=== PATIENT | female | born 1940 ===

== ENCOUNTER 2024-07-16 16:53 | Inpatient (IN) | payer OTHER ==
[2024-07-16 21:53] VITALS: BMI 20.2
[2024-07-16] MEDS: APIXABAN 5 MG TABLET PO ONE (22:35)
[2024-07-16] MEDS: GABAPENTIN 100 MG CAP PO SCH (22:35)
[2024-07-16] MEDS: ALPRAZOLAM 0.5 MG TABLET PO SCH (22:35)
[2024-07-16] MEDS: NITROFURAN MACRO 100 MG CAP PO ONE (22:35)
[2024-07-16 23:51] LABS: Specific Gravity 1.007 (1.005-1.030); Sqamous Epithelial None Seen /HPF (None Seen); Urine Bacteria 20-50 /HPF (<20); Urine Bilirubin NEGATIVE (Negative); Urine Blood Negative (Negative); Urine Clarity Turbid (Clear); Urine Color Colorless (Yellow); Urine Culture Reflex Order REFLEXED; Urine Glucose NEGATIVE (Negative); Urine Ketones NEGATIVE (Negative); Urine Micro Reflex YN NO BILL MICROSCOPIC; Urine Mucus Slight /HPF (None Seen); Urine Nitrite NEGATIVE (Negative); Urine Protein NEGATIVE (Negative); Urine RBC <5 /HPF (None Seen); Urine Urobilinogen Normal (Normal); Urine WBC 20-50 /HPF (<5); Urine WBC Clump Rare /HPF (None Seen)
[2024-07-17] MEDS ORDERED: ALBUTEROL INHALER 200 PUFF/6.7 GM IH PRN (02:02)
[2024-07-17] MEDS ORDERED: LOPERAMIDE HCL 2 MG CAPSULE PO PRN (02:02)
[2024-07-17] MEDS ORDERED: TRAMADOL HCL 50 MG TAB PO PRN (02:02)
[2024-07-17] MEDS ORDERED: ACETAMINOPHEN 325 MG TABLET PO PRN (02:02)
[2024-07-17] MEDS ORDERED: DOCUSATE NA/SENNA CONC 1 TAB PO PRN (02:08)
[2024-07-17 06:20] LABS: Absolute Basophils 0.1 K/uL (0-0.5); Absolute Eosinophils 0.2 K/uL (0-0.5); Absolute Lymphocytes (CBC) 1.9 K/uL (0.7-4.9); Absolute Monocytes 0.9 K/uL (0.1-1.3); Absolute Neutrophil 2.6 K/uL (1.8-8.0); Eosinophils % 3.7 % (0-4.4); Hematocrit 30.2 % (36.0-45.0); Hemoglobin 9.7 g/dL (12.0-15.0); Lymphocytes % 34.5 % (15.3-44.8); MCH 30.6 pg (27.0-35.0); MCHC 32.2 g/dL (32.0-36.0); MCV 94.9 fL (80-100); MPV 10.1 fL (7.6-11.3); Monocytes % 15.2 % (3.3-12.3); Neutrophils % 45.6 % (41.7-73.7); Nucleated Red Blood Cells % 0.2 % (0-0); Platelets 133 thou/uL (152-406); RBC Red Blood Cell Count 3.19 M/uL (3.86-4.86); Red Cell Distribution Width 15.9 % (12.1-15.2)
[2024-07-17 06:54] LABS: Albumin 2.1 g/dL (3.4-5.0); Anion Gap 5.9 mEq/L (5.0-15.0); Prealbumin 11.5 mg/dL (20-40)
[2024-07-17 06:55] LABS: Magnesium 1.7 mg/dL (1.6-2.4); Potassium 3.9 mEq/L (3.5-5.1)
[2024-07-17] MEDS: FLU (Fluarix Triv) TS24-25(6MOS UP)/PF 45 MCG/0.5 ML Syringe IM ONE (07:15)
[2024-07-17] MEDS: carvediloL 12.5 MG TAB PO SCH (07:29)
[2024-07-17] MEDS: LEVOTHYROXINE SOD 0.075 MG TAB PO SCH (07:29)
[2024-07-17] MEDS: FERROUS SULFATE 325 MG TAB PO SCH (07:29)
[2024-07-17] MEDS: VITAMIN D 5,000 UNIT CAP PO SCH (07:30)
[2024-07-17] MEDS: CRANBERRY FRUIT EXTRACT 425 MG CAPSULE PO SCH (07:30)
[2024-07-17] MEDS: ESCITALOPRAM 20 MG TAB PO SCH (07:30)
[2024-07-17] MEDS: methocarbamoL 750 MG TAB PO SCH (07:30)
[2024-07-17] MEDS: APIXABAN 2.5 MG TABLET PO SCH (10:28)
[2024-07-17] MEDS: NITROFURAN MACRO 100 MG CAP PO SCH (15:50)
--- NOTE | 2024-07-17 18:57 | RAD REPORT ---
EXAM: XR Abdomen 1 View (KUB) HISTORY: [facility] MAIN patient in contact isolation for esbl confirm peg placement COMPARISON: None FINDINGS: Single view of the abdomen shows a nonspecific, nonobstructive bowel gas pattern. No suspi cious calcifications are seen. The bones are unremarkable. Numerous surgical clips in the central and lower abdomen. Coiling material left upper quadrant probably relates to prior splenic artery/aneu rysm coiling. IVC filter in place. IMPRESSION: No acute findings. Incidental findings as above.
[2024-07-17] MEDS: GABAPENTIN 300 MG CAP PO SCH (21:03)
--- NOTE | 2024-07-18 00:06 | HP ---
Date of Admission: 07/16/2024 Time Of Service: 1:10 p.m. Chief Complaint: "I fell and broke my pelvis." History Of Present Illness: Ms. Kohler is an 83-year-old patient with history of posthemorrhagic ane stanislav, anxiety, arthritis, atrial fibrillation, bladder cancer, stroke, DVT, GERD, hypertension, dyslip idemia, hypothyroidism, peripheral neuropathy, pulmonary embolism, thyroid disease, who is living bet ween her multiple children who were often not present throughout the day and she has had multiple fal ls. She suffered a fall on the 06 of July into her bathtub and developed significant pain in th e pelvic region. She was unable to move. She was brought to [facility], where workup was suspici ous for cystitis and CT scan of the pelvis revealed an acute minimally displaced fracture of the righ t superior and inferior pubic rami. She had minimally displaced fracture of the right sacral ala. S he had multiple abnormal labs and she was admitted for medical management in addition to pain managem ent. She received IV antibiotics for acute cystitis, carvedilol for heart rate control, Eliquis for DVT prophylaxis, and statin for hypothyroidism along with antihypertensive medications. She was also diagnosed with metabolic syndrome except for diabetes. Her hypothyroidism was addressed with Synthr oid and she had antiplatelet therapy along with statin therapy for history of stroke. She did receiv e beta-kristen and IV Lovenox for pulmonary embolus, IV B12 and iron for thrombocytopenia. She is pu t on contact isolation due to multidrug-resistant organisms. She was evaluated by the Physical Thera py Service and found to be functioning well below her baseline. She required minimum assistance for bed mobilization, unable to stand secondary to pain. She was therefore referred for inpatient rehabi litation to receive intensive therapy to help her return to her prior level of functioning and reduce risk of rehospitalization. She of course has multiple comorbid conditions including management of u rinary tract infection, IV antibiotics will be managed. She has been transitioned to Macrobid for 4 weeks. She did have hemoglobin down to 10.4, hematocrit 32.7. She is receiving gabapentin for neuro pathic pain. As noted, recurrent history of falls with pain that is significant. She is medically c leared for aggressive therapy along with medical management and has now been put in the rehabilitatio n unit to help her return to prior level of functioning and reduce risk of rehospitalization. Past Medical History: As noted. Allergies: ALENDRONATE SODIUM, CELECOXIB, AND PENICILLINS. Current Medications: Tylenol 650 mg every 6 hours as needed, [place] 5/325 every 6 hours as needed, al buterol nebulizer 2 puffs every 6 hours as needed, Xanax 0.5 mg at bedtime, Eliquis 2.5 mg twice jovi y, Coreg 12.5 mg twice daily, vitamin D 5000 units daily, duloxetine 20 mg daily, Lexapro 20 mg daily , ferrous sulfate 325 mg daily, gabapentin 300 mg twice daily, Synthroid 0.15 mg daily, Imodium 2 mg every 4 hours as needed for diarrhea, Robaxin 750 mg twice daily, Macrobid 100 mg twice daily for 4 w eeks, Senokot-S 2 at bedtime, tramadol 50 mg every 6 hours as needed. Laboratory Studies: White blood cell count 5.6, hemoglobin 9.7, platelets are 133. Sodium 142, pota ssium 3.4, chloride 113, carbon dioxide 27, BUN 15, creatinine 0.77, glucose 84, calcium 8.5, magnesi um 1.7, albumin 2.1, prealbumin 11.5. Urinalysis is turbid clarity, 20 to 50 white blood cells, 20 t o 50 bacteria, and cultures are pending. Family History: Noncontributory. Review of Systems: She does report some moderate pain while lying in bed and becomes moderate to severe pain when trying to bear weight and transfer. Otherwise, she denies any fevers, chills, nausea, vomiting. She has m ild myalgias, arthralgias. No rash, headache. No active psychiatric issues. She did say she is nadiya y happy to have a PureWick at night especially as it is very difficult for her to do a transfer from bed to sit to stand to use a bedside commode. She will be encouraged to be able to be out of bed as much as possible. Current Level Of Functioning: Currently, she is at a supervision level for eating, grooming, depende nt for bathing, moderate assistance for upper body dressing, lower body dressing she is dependent, to ileting is dependent, bed and chair transfer dependent, toilet transfer dependent, not yet attempted ambulation. Physical Examination: Vital Signs: Blood pressure 134/75, pulse 65, respiratory rate 16, temperature 98.2, oxygen saturati on 97%. Weight 104 pounds, height 5 feet, BMI 20.3. General: Again, Ms. Kohler is lying in bed. HEENT: She is normocephalic, atraumatic. Sclerae anicteric. Oropharynx pink and moist. Neck: Supple. Chest: Clear. Heart: Regular. Extremities: She does have some mild edema in the upper extremities proximally and distally as well as the lower extremities. She has mild bruising in the arms. Neuro: In terms of cranial nerves, no focal deficits. She moved both upper extremities equally well . Moves both legs equally well. She does appear to have some decreased sensation on the left compar ed to right. In terms of double simultaneous stimulation, she did test it on the right, but not on t he left. Rehab And Medical Assessment And Plan: Ms. Kohler is an 83-year-old patient in rehabilitation unit w ith impairment category 07, fracture of lower extremity. Her impairment group code is 08.3, pelvic f racture. Etiologic diagnosis, minimally displaced fracture of the right superior and inferior pubic rami. Her comorbidities are decreased mobility, decreased physical functioning, hypertension, prior stroke with good recovery, hypothyroidism, peripheral neuropathy, osteoarthritis, pulmonary embolism, anxiety, atrial fibrillation, bladder cancer, GE reflux. Plan: 1. She will have physical, occupational, and speech therapy, 3.5 hours, 5 of 7 days. 2. Her multiple comorbid conditions are being addressed by continuing medications for pain that is th e tramadol, [place], and will also continue of course gabapentin, Synthroid for hypothyroidism, Imodium for loose stools, Robaxin for muscle spasms, Macrobid continued for urinary tract infection, tramado l for pain as noted. She does have vitamin D on board, Coreg to help with blood pressure control at 12.5 mg twice daily, Eliquis 2.5 mg twice daily for DVT prophylaxis, Xanax 0.5 mg at bedtime for anxi ety, albuterol nebulizer on board as well and again [place]. Comorbidities That Are Impacting Rehabilitation: Ms. Kohler does have significant pain and of course pelvic fracture is healing by secondary intention, where her pain medications are going to be optimi zed and adjusted appropriately. However, that may cause her to become drowsy, lose her balance, and so she will have fall precautions adhered to at all times. Aspiration pneumonia is a risk. She will have incentive spirometry. Chest x-ray to be evaluated. Rehab Specific Plan: 1. Ms. Kohler will have physical, occupational, and speech therapy, 3.5 hours, 5 of 7 days, to improv e her ability to safely transfer from bed to a chair, to a rolling walker, to a wheelchair, on and of f the toilet, in and out of shower. Therapy will help with upper and lower body dressing, donning an d doffing footwear. 2. Therapy will help with performance of activities of daily living and therapy for her safety awaren ess with speech. Ms. Kohler has a good understanding of the process of admission to the inpatient rehabilitation unit and how she will benefit from physical, occupational, and speech therapy. She will have 24 hours a d ay, 7 days a week, skilled rehabilitation and nursing, daily physician evaluation and management, and long term care social worker evaluation and management for discharge planning, home equipment, and to continue wi therapy. If need be, additional help will be sought from the Hospitalist Service. Barriers To Discharge: Currently, she is at high risk of falling. She may not thrive while in inpat ient rehab and may require extended time in long term. She will be observed for this, but the goal is to get her back home with family. She has multiple comorbid conditions, again any of which c an flare up and reduce the capacity to do very well and those be tightly managed. Length Of Stay: About 10 days. Disposition: Home with continued therapy via Home Health and with care of family. Prognosis: Good. Code Status: Full code. Rehab Specific Goals: 1. Become independent with upper and lower body dressing, donning and doffing footwear. 2. Independently mobilize a wheelchair 250 feet and a walker 250 feet as well as go up and down 10 st eps with bilateral handrails with independence. 3. Independently perform all cognitive functioning and safety awareness issues. The above goals were reviewed with Ms. Kohler and she is in agreement. By signing this document, I acknowledge I personally performed a full physical examination on Ms. Jewel mojica no later than 24 hours after her admission to the inpatient rehabilitation unit and determined th at she is able to tolerate the above course of treatment at an intensive level for a reasonable perio d of time. A detailed individualized plan of care for her will be completed by hospital day 4 based on the preadmission screen, history and physical, and therapy evaluations. MADY Voice ID: [id number]
[2024-07-18] MEDS: DULOXETINE 20 MG CAP PO SCH (08:33)
[2024-07-18] MEDS: HYDROCODONE/APAP 5/325 MG TAB PO PRN (08:43)
--- NOTE | 2024-07-18 14:09 | P.RH.PN ---
Estimated Length of Stay: 16 Expected Discharge Date: 07/30/24 Discharge Disposition Plan: Home Family Support: Yes Vital Signs: Last Vital Signs Temp 97.6 F 07/18/24 07:37 Pulse 65 07/18/24 08:34 Resp 16 07/18/24 07:37 BP 119/55 L 07/18/24 08:34 Pulse Ox 96 07/18/24 07:37 Laboratory: Laboratory Last Values WBC 5.60 thou/uL (4.3-10.9) 07/17/24 05:28 RBC 3.19 M/uL (3.86-4.86) L 07/17/24 05:28 Hgb 9.7 g/dL (12.0-15.0) L 07/17/24 05:28 Hct 30.2 % (36.0-45.0) L 07/17/24 05:28 MCV 94.9 fL (80-100) 07/17/24 05:28 MCH 30.6 pg (27.0-35.0) 07/17/24 05:28 MCHC 32.2 g/dL (32.0-36.0) 07/17/24 05:28 RDW 15.9 % (12.1-15.2) H 07/17/24 05:28 Plt Count 133 thou/uL (152-406) L 07/17/24 05:28 MPV 10.1 fL (7.6-11.3) 07/17/24 05:28 Neutrophils % 45.6 % (41.7-73.7) 07/17/24 05:28 Lymphocytes % 34.5 % (15.3-44.8) 07/17/24 05:28 Monocytes % 15.2 % (3.3-12.3) H 07/17/24 05:28 Eosinophils % 3.7 % (0-4.4) 07/17/24 05:28 Basophils % 1.0 % (0-1.3) 07/17/24 05:28 Absolute Neutrophils 2.6 K/uL (1.8-8.0) 07/17/24 05:28 Absolute Lymphocytes 1.9 K/uL (0.7-4.9) 07/17/24 05:28 Absolute Monocytes 0.9 K/uL (0.1-1.3) 07/17/24 05:28 Absolute Eosinophils 0.2 K/uL (0-0.5) 07/17/24 05:28 Absolute Basophils 0.1 K/uL (0-0.5) 07/17/24 05:28 Sodium 142 mEq/L (136-145) 07/17/24 05:28 Potassium 3.9 mEq/L (3.5-5.1) 07/17/24 05:28 Chloride 113 mEq/L (98-107) H 07/17/24 05:28 Carbon Dioxide 27 mEq/L (21-32) 07/17/24 05:28 Anion Gap 5.9 mEq/L (5.0-15.0) 07/17/24 05:28 BUN 15 mg/dL (7-18) 07/17/24 05:28 Creatinine 0.77 mg/dL (0.55-1.02) 07/17/24 05:28 Est GFR (CKD-EPI) 76 ml/min (=/>90) L 07/17/24 05:28 Glucose 84 mg/dL (74-106) 07/17/24 05:28 Calcium 8.5 mg/dL (8.5-10.1) 07/17/24 05:28 Magnesium 1.7 mg/dL (1.6-2.4) 07/17/24 05:28 Albumin 2.1 g/dL (3.4-5.0) L 07/17/24 05:28 Prealbumin 11.5 mg/dL (20-40) L 07/17/24 05:28 Urine Color Colorless (Yellow) 07/16/24 23:00 Urine Clarity Turbid (Clear) H 07/16/24 23:00 Urine pH 6.0 (5.0-7.0) 07/16/24 23:00 Ur Specific [place] 1.007 (1.005-1.030) 07/16/24 23:00 Glucose (UA)(Auto) Negative (Negative) 07/16/24 23:00 Urine Ketones Negative (Negative) 07/16/24 23:00 Urine Blood Negative (Negative) 07/16/24 23:00 Urine Nitrite Negative (Negative) 07/16/24 23:00 Urine Bilirubin Negative (Negative) 07/16/24 23:00 Urine Urobilinogen Normal (Normal) 02/05/25 23:00 Ur Leukocyte Esterase Negative [place]/uL (Negative) 07/16/24 23:00 Urine RBC <5 /HPF (None Seen) 07/16/24 23:00 Urine WBC 20-50 /HPF (<5) H 07/16/24 23:00 Urine WBC Clumps Rare /HPF (None Seen) 07/16/24 23:00 Ur Squamous Epith Cells None seen /HPF (None Seen) 07/16/24 23:00 U Non-Squamous Epi Cells <5 /HPF (None Seen) 07/16/24 23:00 Urine Bacteria 20-50 /HPF (<20) H 07/16/24 23:00 Urine Mucus Slight /HPF (None Seen) 07/16/24 23:00 Urine Culture Reflexed Reflexed 07/16/24 23:00 Urine Total Protein Negative (Negative) 07/16/24 23:00 Weight: 104 lb Wound Present: Yes Negative Pressure Wound Therapy Present: No Physician Update: Mild anemia and malnutrition. BIMS 14. She has moderate to severe pain. CGA bed mobility, min assist sit to stand. RW 10' max assist, WC 50' with CGA. Mod assist toileting, lower body dressing. Mod assist transfering. Supervision with upper body dressing. Summary: Patient's care plan and penitentiary goals have been reviewed and revised as necessary. Please see the Rehabilitation Signature page for all necessary signatures.
[2024-07-18] MEDS ORDERED: ACETAMINOPHEN 325 MG TABLET PO PRN (15:36)
[2024-07-18] MEDS ORDERED: ALPRAZOLAM 0.5 MG TABLET PO PRN (15:37)
[2024-07-18] MEDS ORDERED: LOPERAMIDE HCL 2 MG CAPSULE PO PRN ×2 (15:38→15:43)
[2024-07-18] MEDS: carvediloL 12.5 MG TAB PO SCH (16:57)
[2024-07-18] MEDS ORDERED: ALBUTEROL INHALER 200 PUFF/6.7 GM IH SCH (18:00)
[2024-07-18] MEDS ORDERED: ALBUTEROL IH SCH (18:00)
[2024-07-18] MEDS: NITROFURAN MACRO 100 MG CAP PO SCH (19:23)
[2024-07-18] MEDS: APIXABAN 2.5 MG TABLET PO SCH (19:23)
[2024-07-18] MEDS: GABAPENTIN 100 MG CAP PO SCH (19:24)
[2024-07-18] MEDS: methocarbamoL 750 MG TAB PO SCH (19:29)
[2024-07-19] MEDS: DULOXETINE 20 MG CAP PO SCH (09:03)
[2024-07-19] MEDS: LEVOTHYROXINE SOD 0.075 MG TAB PO SCH (09:05)
[2024-07-19] MEDS: FERROUS SULFATE 325 MG TAB PO SCH (09:06)
[2024-07-19] MEDS: VITAMIN D 5,000 UNIT CAP PO SCH (09:08)
[2024-07-19] MEDS: TRAMADOL HCL 50 MG TAB PO PRN (14:09)
[2024-07-21] MEDS: HYDROCODONE/APAP 5/325 MG TAB PO PRN (09:11)
--- NOTE | 2024-07-21 11:25 | P.CNS ---
Date of Consult: 07/21/24 Reason for Consult: painful toenails Allergies alendronate sodium [From Fosamax] Allergy (Severe, Verified 04/27/14 15:37) tachycardia celecoxib [From Celebrex] Allergy (Intermediate, Verified 04/27/14 15:37) Rash Penicillins Allergy (Unknown, Verified 04/27/14 15:37) Hives/Rash Home Medications: ALPRAZolam [Xanax*] 0.5 mg PO BEDTIME PRN 02/20/14 Cholecalciferol (Vitamin D3) [Vitamin D-3] 5,000 unit PO DAILY 04/27/14 Gabapentin [Neurontin] 100 mg PO TID 04/27/14 Apixaban [Eliquis] 5 mg PO BID 10/13/15 Tramadol HCl [Ultram] 50 mg PO Q4H PRN 10/13/15 Acetaminophen [Tylenol] 650 mg PO Q6H PRN 07/17/24 Albuterol Inhaler [Ventolin Inhaler] 2 puff IH Q6H PRN 07/17/24 Escitalopram [Lexapro] 20 mg PO DAILY 07/17/24 Ferrous Sulfate [Feosol] 325 mg PO DAILY 07/17/24 Hydrocodone 5/APAP 325 [[place] 5/325] 1 tab PO Q6H PRN 07/17/24 Levothyroxine [Synthroid] 150 mcg PO [id number] 07/17/24 Loperamide HCl [Imodium A-D] 2 mg PO Q4H PRN 07/17/24 carvediloL [Coreg] 12.5 mg PO BIDAC 07/17/24 methocarbamoL [Robaxin] 750 mg PO BID 07/17/24 - Past Medical/Surgical History Diabetic: No -: HTN -: Hx DVT 2013 -: insomia -: hypothyroid -: hyperlipidedema -: osteoarthritis -: Bladder CA -: AFib -: TKR left -: Fx left foot -: Bladder Cancer (tumors removed) -: Cholecystectomy -: Vein Sx @ [facility] - Family History Mother Medical History: Cancer Father Medical History: Heart disease - Social History Smoking Status: Former smoker Alcohol use: No CD- Drugs: No Caffeine use: Yes Place of Residence: Home Review of Systems 10-point ROS is otherwise unremarkable Physical Examination Temp Pulse Resp BP Pulse Ox 97.4 F 68 16 126/60 99 07/21/24 06:39 07/21/24 08:17 07/21/24 06:39 07/21/24 08:17 07/21/24 06:39 General: Alert, In no apparent distress, Oriented x3 Cardiovascular: No edema, Normal pulses Capillary refill: <2 Seconds Musculoskeletal: No clubbing, No swelling, No erythema, No tenderness, No warmth, Contractures (Contracture right lesser digits 2-4) Integumentary: No rashes, No breakdown, No significant lesion, No tenderness/s welling, No erythema, No warmth, No cyanosis, Other (Thickened hypertrophic right 1st and second digit toenails. Elongated nails 1-5 left, 3-5 right) Neurological: Sensation intact - Problems (1) intermediate accountant (current) use of anticoagulants Current Visit: Yes Status: Acute (2) Tinea unguium Current Visit: Yes Status: Acute (3) Onychogryphosis Current Visit: Yes Status: Acute Conclusions/Impression: Mechanical debridment of toenails at bedside Physician Review: Patient Assessed, Agree with Above Assessment and Plan
[2024-07-21] MEDS: GABAPENTIN 100 MG CAP PO SCH (14:37)
--- NOTE | 2024-07-21 17:45 | RAD REPORT ---
Extremity Venous Uni Ltd CLINICAL INDICATION: Female, 83 years old.r/o DVT RIGHT TECHNIQUE: Complete duplex sonography of the lower extremity veins was performed of the affected limb . The examination included compression for vein patency, color Doppler imaging and flow augmentation in response to distal compression of the distal external iliac, common femoral, femoral, popliteal, peroneal, tibial and great saphenous veins. [id number]. COMPARISON: No prior exams FINDINGS: Duplex sonography imaging demonstrates all deep veins examined to be fully compressible with spontane ous, phasic and augmented flow in the affected limb. IMPRESSION: No evidence of deep venous thrombosis in the right lower extremity.
--- NOTE | 2024-07-21 23:53 | PN ---
Date of Progress Note: 07/21/2024 Time Of Service: 1:25 p.m. Subjective: Ms. Kohler is sitting in a chair. She said with mobilization, the pelvic fracture area does provide some pain, but it is being mitigated. She did report some pain in the right calf area w ith mobilization. A Doppler study was done to rule out deep vein thrombus. The study showed no evid ence of deep vein thrombus in the right lower extremity. She was seen by Dr. Lakhwinder Jesus on the Pod iatry Service and had debridement of the toenails at the bedside. Objective: Again, some pain in the right calf. Otherwise, no fevers, chills, nausea, vomiting, myal gias, arthralgias, rash. Physical Examination: Vital Signs: Blood pressure 125/60, pulse 81, respiratory rate 18, temperature 98.1, oxygen saturati on 99%. General: Ms. Kohler is sitting in a chair in between therapy sessions. HEENT: She is normocephalic, atraumatic. Sclerae anicteric. Oropharynx pink and moist. Neck: Supple. Chest: Clear. Extremities: Again, no tenderness to palpation in the calf area on the right or left. Laboratory Studies: No new laboratory studies. X-ray/imaging: As noted above and consultation as noted. Medications: Medications have been reviewed. She is on now gabapentin 200 mg 3 times daily to rhonda t with the pain, she had 100 mg twice daily previously. Progress Made With Physical And Occupational Therapy: Today with physical therapy, she completed tra nsfers, multiple ips-zt-qonbi transfers, nlnpi-vw-[id number] transfers with contact guard to minimum rhonda tance. She ambulated 50 feet twice, 20 feet and 40 feet with a rolling walker with contact guard to minimum assistance. Mobilized a wheelchair 50 feet with contact guard to standby assistance. With o ccupational therapy, performed bed mobilization, supine to edge of bed with contact guard assistance from bed to wheelchair with minimum assistance required. Assessment: Ms. Kohler is an 83-year-old patient with traumatic pelvic fracture. She is making good progress overall, still so with her mobilization, and somewhat limited by pain in the pelvic region and right lower extremity. She does have gabapentin increased to now 200 mg 3 times daily, which may help mitigate the neuropathic pain. She has decreased mobility, decreased physical functioning, is now treated for urinary tract infection, has hypothyroidism, anemia, and anxiety. Plan: Again, continue with physical and occupational therapy 3 hours a day, 5 of 7 days. Continue w ith comorbid condition medications which are noted. She again is likely to require significant help and may not be able to go home independently based on the rate of progress that she is making after n ow being 5 days in the rehabilitation unit. halfway has to be considered. AZUCENA/SOPHIE Voice ID: [id number] Report ID: [id number]
--- NOTE | 2024-07-22 21:09 | PN ---
Date of Progress Note: 07/22/2024 Time Of Service: 1:30 p.m. Subjective: Ms. Kohler is sitting in a chair beside the bed. She does report some improvement. Can have a tired or soreness actually feeling in the right calf, and she has had deep vein thrombosis ru led out by negative Doppler. She says she is doing otherwise well. Pain could be up to 6/10 when sh vesna is mobilizing and that is from her pelvic fracture. No other complaints. Objective: No fevers, chills, nausea, vomiting. Mild tenderness and soreness in the muscles of the calf. Otherwise, no new complaints on systems review as well. Physical Examination: Vital Signs: Blood pressure 105/51, pulse 80, respiratory rate 17, temperature 98.0, oxygen saturati on 98%. General: Ms. Kohler is resting in a chair beside the bed. HEENT: She is normocephalic, atraumatic. Sclerae anicteric. Oropharynx pink and moist. Neck: Supple. Chest: Clear. Heart: Regular. Neurologic: She has no focal neurological deficits. Laboratory Studies: No new laboratory studies. X-ray/imaging: No new x-rays or imaging. Medications: Medications have been reviewed and are unchanged. Progress Made With Physical And Occupational Therapy: Today, with physical therapy, completed bed mo bility, turning in bed with supervision to contact guard assistance. She is ambulating about 12 feet with a rolling walker with minimum assistance. With occupational therapy, toilet transfers and show er transfers done with minimum assistance. Qiu-gu-hufuw transfers with a rolling walker, minimum ass istance. Assessment: Ms. Kohler is an 83-year-old patient, admitted to rehabilitation unit with traumatic pel jos fracture, from which she is doing very well. She has comorbid anxiety, hypertension, depression, anemia, hypothyroidism, constipation, urinary tract infection. Plan: She will continue with physical and occupational therapy 3 hours a day, 5 of 7 days. She has a list of comorbid conditions, and medications are being continued. She has DVT prophylaxis on board with the Eliquis 2.5 mg twice daily. LB/MODL Voice ID: [id number] Report ID: [id number]
[2024-07-23] MEDS: LIDOCAINE 4% PATCH TOP SCH (17:15)
--- NOTE | 2024-07-23 18:10 | RAD REPORT ---
EXAMINATION: XR RIGHT ANKLE CLINICAL INDICATION: . pain TECHNIQUE:Two view radiograph of the right ankle were obtained. COMPARISON: No prior exam. FINDINGS: Diffuse severe osteopenia seen. This limits quality of the study. No acute fracture seen. S mall calcaneal spurs. Given the high degree of osteopenia, if clinical suspicion persists, CT or or MR imaging would be recommended of the ankle.
--- NOTE | 2024-07-24 00:59 | PN ---
Date of Progress Note: 07/23/2024 Time Of Service: 1:40 p.m. Subjective: Ms. Kohler is sitting in a chair beside bed. She does report some more pain in the righ t ankle and Achilles area. Right calf is not providing much pain. She is doing very well. She has had little soreness there. Objective: Again, some mild pain in the right calf, and the right Achilles healed on the right ankle . Otherwise, no fevers, chills. No nausea, vomiting. No other complaints. She did have an x-ray d one of the right ankle 2 views to rule out any issues there. The study did find diffuse disease and severe osteopenia. No acute fracture. Small calcaneal spurs. It is noted that given the high degre e of osteopenia, clinically suspicious issues may require CT scan or MRI imaging. Physical Examination: Vital Signs: Blood pressure 109/53, pulse 84, respiratory rate 18, temperature 99.2, oxygen saturati on 95%. General: Again, Ms. Kohler is sitting in a chair. Some soreness as noted in the right heel. HEENT: She is normocephalic, atraumatic. Sclerae anicteric. No issues in terms of her pelvic fract ure from which pain is well managed. Laboratory Studies: No new laboratory studies done and the x-rays as mentioned. Medications: No changes done to her medications. Progress Made With Physical And Occupational Therapy: Today with physical therapy, she did multiple hra-lb-hgosy transfers with contact guard to minimum assistance. Ambulated 40 feet with a rolling wa lker with contact guard assistance. Mobilized a wheelchair 250 feet with supervision and she was abl e to go up and down 4 steps with contact guard to minimum assistance. Mobilized a wheelchair again 5 0 feet twice with supervision. With her occupational therapy, standby assistance for ail-ta-qkvam tr patrick, toilet hygiene with standby assistance. Assessment: Ms. Kohler is an 83-year-old patient in rehabilitation unit with pelvic fracture. She h as decreased mobility, decreased physical functioning. She has significant pain. Continue with anti biotics. She has muscle spasms, hypothyroidism, anxiety, hypertension. Plan: She will continue with physical and occupational therapy as noted. Continue with comorbid con dition medications that are noted and she is going to be ready for discharge, but should continue the rapy via Home Health. Comorbidities Impacting Rehabilitation: At this point, her comorbidities are stably managed and do n ot negatively impact her rehabilitation. AZUCENA/SOPHIE Voice ID: [id number] Report ID: [id number]
[2024-07-24 06:25] LABS: Absolute Basophils 0.1 K/uL (0-0.5); Absolute Eosinophils 0.1 K/uL (0-0.5); Absolute Lymphocytes (CBC) 1.6 K/uL (0.7-4.9); Absolute Monocytes 0.7 K/uL (0.1-1.3); Absolute Neutrophil 2.1 K/uL (1.8-8.0); Basophils % 1.4 % (0-1.3); Hematocrit 30.3 % (36.0-45.0); Hemoglobin 10.1 g/dL (12.0-15.0); Lymphocytes % 34.5 % (15.3-44.8); MCH 31.3 pg (27.0-35.0); MCHC 33.5 g/dL (32.0-36.0); MCV 93.7 fL (80-100); MPV 10.6 fL (7.6-11.3); Monocytes % 15.9 % (3.3-12.3); Neutrophils % 45.2 % (41.7-73.7); Nucleated Red Blood Cells % 0.2 % (0-0); Platelets 127 thou/uL (152-406); RBC Red Blood Cell Count 3.23 M/uL (3.86-4.86); Red Cell Distribution Width 15.8 % (12.1-15.2)
[2024-07-24 06:47] LABS: Albumin 2.5 g/dL (3.4-5.0); Anion Gap 7.4 mEq/L (5.0-15.0); Magnesium 2.2 mg/dL (1.6-2.4); Potassium 4.4 mEq/L (3.5-5.1)
[2024-07-24] MEDS ORDERED: LIDOCAINE 4% PATCH TOP SCH (08:00)
[2024-07-24 10:44] LABS: Prealbumin 13.2 mg/dL (20-40)
[2024-07-24] MEDS: GABAPENTIN 300 MG CAP PO SCH (14:41)
--- NOTE | 2024-07-25 01:05 | PN ---
Date of Progress Note: 07/24/2024 Time Of Service: 1:20 p.m. Subjective: Ms. Kohler is ambulating down the hallway slowly. She is having some difficulty bearing weight which is touchdown in the right lower extremity because of the pelvic fracture and there is s ome actual pain in the right heel and foot. She is actually not at touchdown weightbearing, but weig htbearing as tolerated status. She did have an x-ray done of the right ankle done yesterday and it s howed diffuse severe osteopenia. No fractures seen. There is a small calcaneal spur and it is noted that MRI or CT scan would better image the ankle if there is worry of a fracture. Objective: Some moderate pelvic pain. She again is favoring the right leg. She does quickly hop on the left leg and holding the arms on the walker. Otherwise, she appears normocephalic, atraumatic. Sclerae anicteric. Oropharynx pink and moist. Neck is supple. Laboratory Studies: White blood cell count 4.6, hemoglobin 10.1, platelets 127. Sodium 143, potassi um 4.4, chloride 110, carbon dioxide 30, BUN 19, creatinine 0.94, glucose 87, calcium 8.7, magnesium 2.2, prealbumin 13.2, and albumin is 2.5. Progress Made With Physical And Occupational Therapy: With her physical therapy today, she performed btgbpa-sl-xpp transfers with standby assistance, multiple yel-rz-fwvrm transfers with minimum to con tact guard assistance. With occupational therapy, supervision for toileting, cues required. Donning and doffing of clothes also required supervision. Assessment: Ms. Kohler is an 83-year-old patient in the rehabilitation unit with pelvic fracture and she has right ankle and hip pain. She has osteopenia in the right lower extremity with no fractures identified. She has decreased mobility, decreased physical functioning, risk of deep vein thrombus, on Eliquis. She has hypertension, neuropathic pain, depression, hypothyroidism, muscle spasms, and is being treated for urinary tract infection. Plan: She will continue with physical and occupational therapy. Continue with comorbid condition me dications as noted. She does have lidocaine patch. She has gabapentin adjusted and has tramadol on board to help manage her pain. Imperial was held and it is to be used as needed, but sparingly. LB/MODL Voice ID: [id number] Report ID: [id number]
--- NOTE | 2024-07-25 14:37 | P.RH.PN ---
Estimated Length of Stay: 16 Expected Discharge Date: 07/30/24 Discharge Disposition Plan: Home Family Support: Yes [facility] Goal: Mobility, Transfers, Self Care Vital Signs: Last Vital Signs Temp 97.8 F 07/25/24 07:30 Pulse 73 07/25/24 08:11 Resp 16 07/25/24 08:10 BP 134/70 07/25/24 08:11 Pulse Ox 95 07/25/24 08:10 Laboratory: Laboratory Last Values WBC 4.60 thou/uL (4.3-10.9) 07/24/24 05:54 RBC 3.23 M/uL (3.86-4.86) L 07/24/24 05:54 Hgb 10.1 g/dL (12.0-15.0) L 07/24/24 05:54 Hct 30.3 % (36.0-45.0) L 07/24/24 05:54 MCV 93.7 fL (80-100) 07/24/24 05:54 MCH 31.3 pg (27.0-35.0) 07/24/24 05:54 MCHC 33.5 g/dL (32.0-36.0) 07/24/24 05:54 RDW 15.8 % (12.1-15.2) H 07/24/24 05:54 Plt Count 127 thou/uL (152-406) L 07/24/24 05:54 MPV 10.6 fL (7.6-11.3) 07/24/24 05:54 Neutrophils % 45.2 % (41.7-73.7) 07/24/24 05:54 Lymphocytes % 34.5 % (15.3-44.8) 07/24/24 05:54 Monocytes % 15.9 % (3.3-12.3) H 07/24/24 05:54 Eosinophils % 3.0 % (0-4.4) 07/24/24 05:54 Basophils % 1.4 % (0-1.3) H 07/24/24 05:54 Absolute Neutrophils 2.1 K/uL (1.8-8.0) 07/24/24 05:54 Absolute Lymphocytes 1.6 K/uL (0.7-4.9) 07/24/24 05:54 Absolute Monocytes 0.7 K/uL (0.1-1.3) 07/24/24 05:54 Absolute Eosinophils 0.1 K/uL (0-0.5) 07/24/24 05:54 Absolute Basophils 0.1 K/uL (0-0.5) 07/24/24 05:54 Sodium 143 mEq/L (136-145) 07/24/24 05:54 Potassium 4.4 mEq/L (3.5-5.1) 07/24/24 05:54 Chloride 110 mEq/L (98-107) H 07/24/24 05:54 Carbon Dioxide 30 mEq/L (21-32) 07/24/24 05:54 Anion Gap 7.4 mEq/L (5.0-15.0) 07/24/24 05:54 BUN 19 mg/dL (7-18) H 07/24/24 05:54 Creatinine 0.94 mg/dL (0.55-1.02) 07/24/24 05:54 Est GFR (CKD-EPI) 59 ml/min (=/>90) L 07/24/24 05:54 Glucose 87 mg/dL (74-106) 07/24/24 05:54 Calcium 8.7 mg/dL (8.5-10.1) 07/24/24 05:54 Magnesium 2.2 mg/dL (1.6-2.4) 07/24/24 05:54 Albumin 2.5 g/dL (3.4-5.0) L 07/24/24 05:54 Prealbumin 13.2 mg/dL (20-40) L 07/24/24 05:54 Urine Color Colorless (Yellow) 07/16/24 23:00 Urine Clarity Turbid (Clear) H 07/16/24 23:00 Urine pH 6.0 (5.0-7.0) 07/16/24 23:00 Ur Specific [place] 1.007 (1.005-1.030) 07/16/24 23:00 Glucose (UA)(Auto) Negative (Negative) 07/16/24 23:00 Urine Ketones Negative (Negative) 07/16/24 23:00 Urine Blood Negative (Negative) 07/16/24 23:00 Urine Nitrite Negative (Negative) 07/16/24 23:00 Urine Bilirubin Negative (Negative) 07/16/24 23:00 Urine Urobilinogen Normal (Normal) 07/16/24 23:00 Ur Leukocyte Esterase Negative [place]/uL (Negative) 07/16/24 23:00 Urine RBC <5 /HPF (None Seen) 07/16/24 23:00 Urine WBC 20-50 /HPF (<5) H 07/16/24 23:00 Urine WBC Clumps Rare /HPF (None Seen) 07/16/24 23:00 Ur Squamous Epith Cells None seen /HPF (None Seen) 07/16/24 23:00 U Non-Squamous Epi Cells <5 /HPF (None Seen) 07/16/24 23:00 Urine Bacteria 20-50 /HPF (<20) H 07/16/24 23:00 Urine Mucus Slight /HPF (None Seen) 07/16/24 23:00 Urine Culture Reflexed Reflexed 07/16/24 23:00 Urine Total Protein Negative (Negative) 07/16/24 23:00 Weight: 104 lb Wound Present: No Closed Surgical Incision Present: Yes Negative Pressure Wound Therapy Present: No Physician Update: Labs reviewed and are stable. SBA bed mobility, RW 12' to 40' with CGA, WC 300' with SBA. Min assist with lower body dressing. Shower at supervision. Seeing "stars". May require and head CT to rule out SDH. Summary: Patient's care plan and usp goals have been reviewed and revised as necessary. Please see the Rehabilitation Signature page for all necessary signatures.
--- NOTE | 2024-07-25 17:18 | RAD REPORT ---
EXAM: CT brain without contrast HISTORY: Headache COMPARISON: None TECHNIQUE: Multiple contiguous axial images were obtained and a CT of the brain without contrast.. Sagittal and coronal reconstruction performed. Automated exposure control, adjustment of the mA and/or kV according to patient size, and/or iterative reconstruction. Unless otherwise specified, incidental f indings do not require dedicated imaging follow-up FINDINGS: An intracranial bleed is not seen Ventricles are prominent. This probably is the sequela of mild to moderate cerebral atrophy. No extra-axial fluid collection noted Mild low-density paraventricular, deep and subcortical white matter probably ischemic changes seconda ry to small vessel disease. 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 No fluid within the visualized sinuses or mastoids noted. IMPRESSION: Ventricles are prominent. This probably is the sequela of mild to moderate cerebral atrophy. Normal p ressure hydrocephalus is considered less likely and should be correlated clinically..
[2024-07-26] MEDS: ENSURE ENLIVE 237 ML CAN PO SCH (21:46)
--- NOTE | 2024-07-29 02:46 | PN ---
Subjective: The patient is resting in bed, has been trying to get a nap prior to the next therapy se ssion. Denies any new complaints. No fevers, chills, nausea, vomiting. Pain is managed, just a lit tle sleepy, trying to get a nap. Review of Systems: No fevers, chills, nausea, vomiting, myalgias, arthralgias, rash, headache, or weight change. Physical Examination: Vital Signs: Blood pressure 133/69, pulse 80, respiratory rate 16, temperature 98.1, oxygen saturati on 99%. General: Ms. Kohler is resting comfortably, in no significant distress. HEENT: She is normocephalic, atraumatic. Sclerae anicteric. Oropharynx moist. : Pelvic region pain is managed. Extremities: No significant edema in the lower extremities. Laboratory Studies: No new laboratory studies. X-ray/imaging: No new x-rays or imaging. There was a CT scan of the head done on 07/25/2024. The p atient was reported somewhat sleepy. This study showed ventricles are prominent, probably sequela of mild to moderate cerebral atrophy. Normal-pressure hydrocephalus is considered less likely. Medications: Medications have been reviewed and are unchanged. She is, however, completing a Macrob id course from 07/18/2024 100 mg twice daily to 08/01/2024 28 doses of the Macrobid ordered for ESBL. Progress Made With Physical, Occupational, And Speech Therapy: With physical therapy today, she did perform cgdsqj-lm-hst transfers independently, multiple bki-qs-dgfwq transfers done independently. A mbulated with a rolling walker 70 feet and 40 feet 3 times with independence. With senior occupational therapist apy, independent with zry-kp-jqbwd transfers and wheelchair to edge of bed, independent donning and d offing of footwear, and getting ready to do lower extremity, all done independently. Assessment: Ms. Kohler is an 83-year-old patient in rehabilitation unit with pelvic fracture. She i s doing very well. She has decreased mobility, decreased physical functioning, hypothyroidism, malnu trition, continuing treatment of UTI, muscle spasms, depression, anxiety, and is managed with multipl e medications to address those comorbid conditions. Plan: She will have physical and occupational therapy continue 3 hours a day, 5 of 7 days. She will continue with a list of medications for DVT prophylaxis, to address anxiety, blood pressure, her low vitamin D level, for depression, neuropathic pain, hypothyroidism. Medications for muscle spasm, wh ich is a Robaxin on board, tramadol for pain, and again nutritional issues addressed. AZUCENA/SOPHIE Voice ID: [id number] Report ID: [id number]
[2024-07-29 05:17] LABS: Absolute Eosinophils 0.1 K/uL (0-0.5); Absolute Lymphocytes (CBC) 1.9 K/uL (0.7-4.9); Absolute Monocytes 0.7 K/uL (0.1-1.3); Absolute Neutrophil 2.2 K/uL (1.8-8.0); Basophils % 0.8 % (0-1.3); Hematocrit 30.8 % (36.0-45.0); Hemoglobin 10.2 g/dL (12.0-15.0); Lymphocytes % 37.8 % (15.3-44.8); MCH 31.5 pg (27.0-35.0); MCHC 33.1 g/dL (32.0-36.0); MCV 95.4 fL (80-100); Monocytes % 13.7 % (3.3-12.3); Neutrophils % 44.7 % (41.7-73.7); Nucleated Red Blood Cells % 0.3 % (0-0); Platelets 124 thou/uL (152-406); RBC Red Blood Cell Count 3.23 M/uL (3.86-4.86); Red Cell Distribution Width 16.2 % (12.1-15.2)
[2024-07-29 05:34] LABS: Albumin 2.5 g/dL (3.4-5.0); Anion Gap 6.6 mEq/L (5.0-15.0); Potassium 4.6 mEq/L (3.5-5.1); Prealbumin 12.4 mg/dL (20-40)
--- NOTE | 2024-07-29 22:35 | PN ---
Date of Progress Note: 07/29/2024 Time Of Service: 1:40 p.m. Subjective: Ms. Kohler is doing well. She is improving and is still somewhat slow with her mobiliza tion, moving the right leg especially, otherwise she has no new complaints. Review of Systems: No fevers, chills. No significant myalgias, arthralgias, rash, headache, weight change. She is happ y about going home in the morning. Physical Examination: Vital Signs: Blood pressure 122/53, pulse 74, respiratory rate 16, temperature 98.1, and oxygen satu ration 97%. Note, she is a do not resuscitate patient. HEENT: Otherwise examination, normocephalic, atraumatic. Sclerae anicteric. Oropharynx pink, moist . Neck: Supple. Chest: Clear. Extremities: No significant edema, cyanosis, or clubbing noted. Laboratory Studies: White blood cell count 5.0, hemoglobin 11.2, platelets are 124. Sodium 142, pot assium 4.6, chloride 109, carbon dioxide 21, BUN 31, creatinine 0.88, glucose 92, calcium 8.8, magnes ium 2.0, prealbumin 12.4, albumin 2.5. Medications: Medications have been reviewed and remain unchanged. X-ray/imaging: No new x-rays or imaging. Progress Made With Physical And Occupational Therapy: With physical therapy today, she did multiple ohvqnt-ei-igy transfers independently, perform multiple jhatl-xt-yynwx transfers independently, and p erform a stimulated car transfer independently. She ambulated 75 feet, 55 feet, and 40 feet twice in dependently. She was able to go up and down 5 steps with bilateral handrails with standby assistance . With occupational therapy, independent with flg-aa-qzryx transfers, toilet transfers, shower trans fers, independent with toilet hygiene, bathing, upper and lower body dressing, donning and doffing fo otwear, did very well and use of assistive device was done very well. Assessment And Plan: Ms. Kohler is an 83-year-old patient in rehabilitation unit with pelvic fractur e. She has made great progress with physical and occupational therapy. She will continue with physi ekta therapy via Home Health. She still has decreased mobility, decreased physical functioning, malnu trition, treated, due to urinary tract infection, muscle spasms, depression, anxiety. Those comorbid conditions being addressed adequately. She has DVT prophylaxis on board, vitamin D replacement. He r hypothyroidism was addressed with Synthroid. Again, she will be ready for discharge in the morning . AZUCENA/SOPHIE Voice ID: [id number] Report ID: [id number]
[2024-07-30 07:12] VITALS: TEMP 97.9
[2024-07-30] MEDS ORDERED: methocarbamoL 750 MG TAB PO PRN (07:56)
[2024-07-30 10:13] VITALS: BP 115/52
== END 2024-07-30 13:45 | disposition home health service (06) | DRG 560 ==
LOC: 5TH 19:27 → UNDODISIN 07-18 14:10
PROVIDERS: ADMIT Psychiatry & Neurology Neurology with Special Qualifications in Child Neurology; ATTEND Psychiatry & Neurology Neurology with Special Qualifications in Child Neurology
PROC: 0HBRXZZ Excision of Toe Nail, External Approach (ICD-10-PCS; principal; 2024-07-21)
PROC: 0HBRXZZ Excision of Toe Nail, External Approach (ICD-10-PCS; 2024-07-21)
PROC: 0HBRXZZ Excision of Toe Nail, External Approach (ICD-10-PCS; 2024-07-21)
PROC: 0HBRXZZ Excision of Toe Nail, External Approach (ICD-10-PCS; 2024-07-21)
PROC: 0HBRXZZ Excision of Toe Nail, External Approach (ICD-10-PCS; 2024-07-21)
PROC: 0HBRXZZ Excision of Toe Nail, External Approach (ICD-10-PCS; 2024-07-21)
PROC: 0HBRXZZ Excision of Toe Nail, External Approach (ICD-10-PCS; 2024-07-21)
PROC: 0HBRXZZ Excision of Toe Nail, External Approach (ICD-10-PCS; 2024-07-21)
DX: S32.591D Other specified fracture of right pubis, subsequent encounter for fracture with routine healing (principal); E46 Unspecified protein-calorie malnutrition; N39.0 Urinary tract infection, site not specified; I10 Essential (primary) hypertension; E03.9 Hypothyroidism, unspecified; G62.9 Polyneuropathy, unspecified; M19.90 Unspecified osteoarthritis, unspecified site; F41.9 Anxiety disorder, unspecified; I48.91 Unspecified atrial fibrillation; K21.9 Gastro-esophageal reflux disease without esophagitis; G47.00 Insomnia, unspecified; E78.5 Hyperlipidemia, unspecified; B35.1 Tinea unguium; M62.838 Other muscle spasm; L60.2 Onychogryphosis; M77.31 Calcaneal spur, right foot; F32.A Depression, unspecified; M85.80 Other specified disorders of bone density and structure, unspecified site; Z87.891 Personal history of nicotine dependence; Z79.01 Long term (current) use of anticoagulants; Z86.718 Personal history of other venous thrombosis and embolism; Z85.51 Personal history of malignant neoplasm of bladder; Z68.20 Body mass index [BMI] 20.0-20.9, adult
CPT/HCPCS: 36415; 70450; 74018; 80048; 81001; 82040; 83735; 84134; 85025; 87077; 87086; 87088; 87186; 93971; 97110; 97116; 97163; 97165; 97530; 97542; J2003; J3535